=== PATIENT | female | born 1960 | race Caucasian/White ===

== ENCOUNTER 2022-01-01 18:39 | Emergency (ER) | payer SELFPAY ==
[~2022-01-01] VITALS: Ht 152.4 cm; Wt 63.5 kg
[2022-01-01 19:04] VITALS: BP 170/105
--- NOTE | 2022-01-01 19:51 | NUR ---
Dr. Mccollum examining patient.
--- NOTE | 2022-01-01 20:36 | NUR ---
Patient taken to CT scan.
--- NOTE | 2022-01-01 21:22 | NUR ---
Patient waited in Lobby.
[2022-01-01] MEDS ORDERED: TRAM50TA1 PO (21:50)
[2022-01-01 21:56] VITALS: BP 173/84
--- NOTE | 2022-01-01 21:56 | NUR ---
BP 173/84, Dr. Alvares aware before D/C, Dr. Alvares OK to D/C
[2022-01-02] MEDS ORDERED: ACET-8386 PO (09:54)
== END 2022-01-01 22:04 | disposition home or self-care (01) ==
LOC: MED 18:39
DX: R51.9 Headache, unspecified (principal); F32.9 Major depressive disorder, single episode, unspecified; F41.9 Anxiety disorder, unspecified; Z90.49 Acquired absence of other specified parts of digestive tract; Z98.890 Other specified postprocedural states; Z90.710 Acquired absence of both cervix and uterus
CPT/HCPCS: 70450; 99284

== ENCOUNTER 2022-05-17 07:51 | Day surgery (SDC) | payer OTHER ==
[~2022-05-17] VITALS: Ht 152.4 cm; Wt 60.8 kg
[~2022-05-17 07:51] MED LIST: ACET-8386 PO; TRAM50TA1 PO
[2022-05-17] MEDS ORDERED: LIDOCAINE 2% 100 MG/5 ML UJET TP ONE (11:25)
[2022-05-17] MEDS ORDERED: MIDAZOLAM 2 MG/2 ML VIAL ONE (11:25)
[2022-05-17] MEDS ORDERED: fentaNYL citrate 0.05 MG/ML VIAL ONE (11:25)
[2022-05-17] MEDS ORDERED: fentaNYL citrate 0.05 MG/ML VIAL IVP ONE (14:55)
[2022-05-17] MEDS ORDERED: MIDAZOLAM 2 MG/2 ML VIAL IVP ONE (14:55)
== END 2022-05-17 14:10 | disposition home or self-care (01) ==
LOC: MDS 07:51 → MMU 07:52 → MDS 14:10
PROVIDERS: ATTEND Internal Medicine Gastroenterology
DX: Z12.11 Encounter for screening for malignant neoplasm of colon (principal); K29.70 Gastritis, unspecified, without bleeding; K21.9 Gastro-esophageal reflux disease without esophagitis; E78.5 Hyperlipidemia, unspecified; F41.9 Anxiety disorder, unspecified; F32.9 Major depressive disorder, single episode, unspecified; Z20.822 Contact with and (suspected) exposure to COVID-19; Z79.899 Other long term (current) drug therapy; Z90.710 Acquired absence of both cervix and uterus
CPT/HCPCS: 36415; 43239; 45378; 86677; 87426; J2250; J3010